=== PATIENT | female | born 1985 | race Hispanic/Latino ===

== ENCOUNTER 2021-10-19 15:43 | Emergency (ER) | payer OTHER, SELFPAY ==
--- NOTE | 2021-10-19 15:47 | ED.FEMALEGU ---
HPI - Female Genitourinary General Chief complaint: Urogenital-Female Stated complaint: uti Time Seen by Provider: 10/19/21 16:12 Source: patient and RN notes reviewed Mode of arrival: ambulatory Limitations: no limitations History of Present Illness HPI Narrative: 36-year-old female presents with concern for urinary tract infection. She reports dysuria, frequency, urgency, feeling like not emptying her bladder, suprapubic pressure. She denies abdominal pain, vomiting, fever. She reports history of UTIs. MD elicited complaint: UTI Related Data Home Medications Medication Instructions Recorded Confirmed liothyronine mcg 10/19/21 lisinopril-hydrochlorothiazide tablet 10/19/21 metformin mg 10/19/21 phentermine mg 10/19/21 Allergies Allergy/AdvReac Type Severity Reaction Status Date / Time bee venom protein (honey bee) Allergy Other Verified 10/19/21 15:55 [bees] Review of Systems Review of Systems: CONSTITUTIONAL: Denies malaise, chills, sweats, or fever. CARDIOVASCULAR: Denies chest pain, palpitations, or edema. RESPIRATORY: Denies cough or dyspnea. GASTROINTESTINAL: Denies abdominal pain, nausea, vomiting, diarrhea GENITOURINARY: Reports dysuria, frequency, urgency, suprapubic pressure. Denies flank pain or hematuria. SKIN: Denies rash or itching. MUSCULOSKELETAL: Denies back pain or myalgia. All systems reviewed & are unremarkable except as noted in HPI and below PMFSH Comments At time of signature, agree with nursing past medical, surgical, social and family history. There is no relevant family history pertinent to the presenting complaint Exam Narrative: GENERAL: Well-appearing, well-nourished, and in no acute distress. HEAD: Normocephalic. EYES: PERRLA, conjunctivae clear. NECK: Supple. No lymphadenopathy CHEST: Clear to auscultation. No respiratory distress. HEART: Regular rate and rhythm. ABDOMEN: Soft, nontender upon palpation, nondistended, normal active bowel sounds, no palpable or pulsatile masses, no guarding. No CVA tenderness SKIN: Warm, dry, no rash. NEURO: Alert and oriented x3. PSYCH: Normal mood and affect Course Course Emergency Course: Patient is aware of diagnosis, understands and agrees to treatment plan. Anticipatory guidance given. Patient agrees to follow-up as directed and is aware of reasons to seek care at the emergency department. Portions of this record may have been created with voice recognition software Level of Care: Express Care Visit Vital Signs Vital signs: Reviewed. MDM - Female Genitourinary MDM Narrative Medical decision making narrative: Exam findings and UA show no acute concerns or changes; patient is non-toxic appearing and is in no distress. Patient is appropriate for outpatient treatment and follow-up. Differential Diagnosis Differential diagnosis: Likely urinary tract infection and cystitis Critical Care Time Critical Care Time Critical Care Time: No Discharge Plan Discharge Clinical Impression: Symptoms of urinary tract infection Patient Disposition: Home, Self-Care Condition: Stable Instructions: Antibiotic Form, Urinary Tract Infection in Women (ED) Additional Instructions: We will send a urine culture to the lab; if the culture identifies an organism that the prescribed antibiotic will not treat, you will receive a phone call from an urgent care staff member and an appropriate antibiotic will be prescribed. -Your symptoms should begin to improve within a day of starting antibiotics. But you should finish all the antibiotic pills you get. Otherwise your infection might come back. -Also recommend: increase water intake. Tylenol/ibuprofen as needed for pain or fever -Follow-up with your primary care provider for urine recheck or seek ER visit if condition worsens with high fever, nausea, vomiting and severe back pain. Prescriptions: New nitrofurantoin monohyd/m-cryst [Macrobid] 100 mg capsule 100 mg PO Q12H 5 Days Q
[2021-10-19 15:57] VITALS: BP 158/63; PULSE 85; RESP 20; TEMP 37.2; O2SAT 100
== END 2021-10-19 16:26 | disposition home or self-care (01) ==
PROVIDERS: Emergency Provider Nurse Practitioner
DX: R30.0 Dysuria (principal); R35.0 Frequency of micturition; R39.15 Urgency of urination
CPT/HCPCS: 81003; 87086; 99213; G0463

== ENCOUNTER 2022-02-13 15:40 | Emergency (ER) | payer OTHER, SELFPAY ==
[2022-02-13 15:47] VITALS: BP 133/91; PULSE 97; RESP 16; TEMP 36.6; O2SAT 100
[2022-02-13 15:53] VITALS: BP 133/91; PULSE 97; RESP 16; TEMP 36.6; O2SAT 100
--- NOTE | 2022-02-13 16:09 | ED.ABDPAIN ---
HPI - Abdominal Pain General Chief Complaint: Abdominal Pain Stated Complaint: abd pain Time Seen by Provider: 02/13/22 16:09 Source: patient and RN notes reviewed Mode of arrival: ambulatory Limitations: no limitations History of Present Illness HPI narrative: 36-year-old female presented for complaints of frequent belching, bloating, and loose stool for at least 1 week. Endorses associated nausea and fatigue. She states she has abdominal cramping on both sides of abdomen, worse in the morning and at night, feels better when she is eating. Denies vomiting, urinary complaints, hematochezia, fevers or chills. States she was prescribed Cipro for 2 weeks for urinary symptoms, she states she stopped that medication after 1 week when the symptoms started. She had been taking diet pills (metformin, phentermine, and thyroid med) intermittently since 06/2021, prescribed by weight loss management physician, which she stopped at the onset of symptoms. Endorses a history of IBS but has not been taking any medication for it for years. States she drinks a lot of water and has been eating healthy. Related Data Allergies Allergy/AdvReac Type Severity Reaction Status Date / Time bee venom protein (honey bee) Allergy Other Verified 02/13/22 15:49 [bees] Review of Systems Review of Systems: CONSTITUTIONAL: Denies body aches, fever, chills CARDIOVASCULAR: Denies chest pain, palpitations, or edema. RESPIRATORY: Denies cough or dyspnea. GASTROINTESTINAL: Endorses abdominal pain, nausea, vomiting, diarrhea. Denies hematochezia, melena, hematemesis GENITOURINARY: Denies dysuria, hematuria, or CVA tenderness. NEUROLOGIC: Denies headache, numbness, tingling, or weakness. All systems reviewed & are unremarkable except as noted in HPI and below PMFSH Comments At time of signature, I have reviewed and agree with nursing past medical, surgical, social and family history unless otherwise noted. Please see nursing chart for further information. There is no relevant family history pertinent to the presenting complaint Exam Narrative: GENERAL: Well-appearing ENT: mucous membranes moist CHEST: No respiratory distress. Clear to auscultation. HEART: Regular rate and rhythm. No murmur appreciated. Normal peripheral pulses. ABDOMEN: Nontender abdomen No guarding, rebound tenderness, or asymmetry; abd soft, large, nondistended, normal active bowel sounds. No CVA tenderness SKIN: Warm, dry, no rash. Capillary refill normal. Normal skin turgor. NEURO: No focal deficits. Alert and oriented x3. Gait steady. PSYCH:anxious Course Course Emergency Course: Patient is aware of diagnosis, understands and agrees to treatment plan. Anticipatory guidance given. Patient agrees to follow-up as directed and is aware of reasons to seek care at the emergency department. Portions of this record may have been created with voice recognition software Level of Care: Express Care Visit Vital Signs Vital signs: Vital Signs Temperature 97.9 F 02/13/22 15:47 Pulse Rate 97 02/13/22 15:47 Respiratory Rate 16 02/13/22 15:47 Blood Pressure 133/91 H 02/13/22 15:47 Pulse Oximetry 100 02/13/22 15:47 Oxygen Delivery Room Air 02/13/22 15:47 Temperature 97.9 F 02/13/22 15:53 Pulse Rate 97 02/13/22 15:53 Respiratory Rate 16 02/13/22 15:53 Blood Pressure 133/91 H 02/13/22 15:53 Pulse Oximetry 100 02/13/22 15:53 Oxygen Delivery Room Air 02/13/22 15:53 MDM - Abdominal Pain MDM Narrative Medical decision making narrative: urine with trace leuk, denies urinary symptoms. Advised supportive treatments for GI symptoms along with close f/u with the weight loss management physician since she stopped the medications abruptly. Also advised establish with PCP and GI for further evaluation and recommendations. She is in stable condition and appropriate for outpt treatment and f/u. Lab Data Labs: Urine Glucose Negative
== END 2022-02-13 16:45 | disposition home or self-care (01) ==
PROVIDERS: Emergency Provider Nurse Practitioner Family
DX: R14.2 Eructation (principal); K59.9 Functional intestinal disorder, unspecified
CPT/HCPCS: 81003; 99213; G0463

== ENCOUNTER 2022-02-18 11:29 | Emergency (ER) | payer OTHER, SELFPAY ==
[2022-02-18 11:39] VITALS: BP 127/79; PULSE 83; RESP 20; TEMP 36.9; O2SAT 100
--- NOTE | 2022-02-18 11:59 | ED.URI ---
HPI - URI/Sore Throat General Chief Complaint: Upper Respiratory Infection Stated Complaint: Sinus Time Seen by Provider: 02/18/22 12:00 Source: patient and RN notes reviewed Mode of arrival: ambulatory Limitations: no limitations History of Present Illness HPI Narrative: 36-year-old female presents to the [facility] with complaints of sinus congestion For the last 4 days states that she took Zyrtec for 2 days. States that she is feeling better. No other treatment prior to arrival. States she has an appointment with her primary care provider. Patient also states that she called off work and needs a work note for today. MD elicited complaint: nasal congestion Onset (ago): day(s) (4) Related Data Allergies Allergy/AdvReac Type Severity Reaction Status Date / Time bee venom protein (honey bee) Allergy Other Verified 02/13/22 15:49 [bees] Review of Systems Review of Systems: All systems reviewed & are unremarkable except as noted in HPI and below Constitutional: Constitutional: Reports no additional constitutional complaints, Denies chills and Denies fever(s) Eyes: Eyes: Reports no additional eye complaints ENT: Reports as per HPI and Reports nasal congestion Cardiovascular: Cardiovascular: Reports no additional cardiovascular complaints Respiratory: Respiratory: Reports no additional respiratory complaints Gastrointestinal: Gastrointestinal: Reports no additional gastrointestinal complaints Musculoskeletal: Musculoskeletal: Reports no additional musculoskeletal complaints Integumentary/Breasts: Skin/Breast: Reports system reviewed and no additional complaints, except as docu Neurologic: Reports system reviewed and no additional complaints, except as documented Psychiatric: Psychiatric: Reports no additional psychiatric complaints Allergic/Immunologic: Allergic/Immunologic: Reports no additional allergic/immunologic complaints PMFSH Past Medical History Medical History (Updated 02/18/22 @ 17:45 by Jihan Paredes APRN) History of thyroid disorder Obesity Surgical History Surgical History (Updated 02/18/22 @ 12:14 by Jihan Paredes APRN) No history of previous surgery Social History Social History Gender identity (if verbalized by the patient): Female Comments At the time of my signature, I reviewed and agree with the nursing past medical, surgical, social, and family history. There is no relevant family history pertinent to the patient complaint. Exam Const: General: healthy appearing, no acute distress and alert Nutritional Appearance: well nourished and obese Orientation/consciousness: patient oriented x3 Limitations: no limitations HENMT: Head: normal to inspection Ears: external ears normal General nose exam: Normal external nose present Throat: posterior oropharynx normal, tonsils normal and uvula midline Eyes: General: appearance normal, both eyes and all related structures Pupils: Equal, round and reactive pupils present Neck: Neck: normal visual inspection, no lymphadenopathy and no meningeal signs Chest: Chest palpation & inspection: normal inspection of the chest Resp: Effort & Inspection: normal respiratory effort and no use of accessory muscles Auscultation: clear to auscultation bilaterally, no crackles, no rales, no rhonchi and no wheezes Cardio: Rate: regular rate Rhythm: regular rhythm Back/Spine/Pelvis: Cervical Spine: normal cervical lordosis Thoracic/Lumbar Spine: thoracic and lumbar spine normal to inspection Skin: General skin exam: normal color Rashes: no rashes Wounds: no wounds Neuro: General: patient oriented x3, moves all extremities, no meningeal signs and no focal motor deficits Cranial nerves: Yes Equal, round and reactive pupils present Speech: normal speech Gait exam (Neuro): Normal gait present Extrem: General: normal to inspection, full ROM and capillary refill normal Psych: Appearanc
== END 2022-02-18 12:20 | disposition home or self-care (01) ==
PROVIDERS: Emergency Provider Nurse Practitioner
DX: J06.9 Acute upper respiratory infection, unspecified (principal); E66.9 Obesity, unspecified; Z68.42 Body mass index [BMI] 45.0-49.9, adult
CPT/HCPCS: 99213; G0463

== ENCOUNTER 2022-04-08 01:21 | Day surgery (SDC) | payer OTHER, SELFPAY ==
[2022-04-02 12:08] VITALS: BMI 46.7
--- NOTE | 2022-04-07 11:29 | PM.HPGS ---
History of Present Illness History of Present Illness Consent: Risks, benefits, and alternatives have been discussed and questions answered. Patient agrees to proceed with procedure. Chief complaint: change in bowel habits, abdominal pain, belching Narrative: Oxana Quintanilla is a 36 year old female who reports over the last 6 months she began having intermittent pain around her umbilicus radiating down to her lower quadrant and at times radiating to her lower back and up into her shoulders.? Over the last 1 month this has been progressively been getting worse and says it is now constant. Having BM does not improve or change pain.? She does feel like it improves around 30 minutes after eating and is not typically worse after eating.? She describes this pain as ?menstrual cramping?.? She does report altered bowel habits and at times looser stools and at times feeling constipated but does not feel like she actually has hard stools.? She has mix of soft and looose stools but majority of the time typically 1-3 times per day.? Denies any black or bloody stools.? Has tenesmus.? Unknown family history of any GI malignancies or inflammatory bowel disease. Review of Systems Review of Systems: All systems reviewed & are unremarkable except as noted in HPI and below PMFSH Past Medical History Medical History Altered bowel habits Chronic GERD Diabetes History of thyroid disorder HTN (hypertension) Hypothyroidism Obesities, morbid Obesity Surgical History Surgical History H/O dilation and curettage No history of previous surgery [place] teeth removed Family History Family History Father AA (alcohol abuse) Mother Hypertension Social History Social History Smoking status: Never smoker Second hand tobacco smoke exposure: No Alcohol intake: never Substance use: never Substance use type: does not use Living arrangements: with family Gender identity (if verbalized by the patient): Female Spiritual care concerns: No Meds Home Medications and Allergies Home Medications Medication Instructions Recorded Confirmed Type cholecalciferol (vitamin D3) 10 10 mcg PO DAILY 03/26/22 04/08/22 History mcg (400 unit) capsule dicyclomine 10 mg capsule 10 mg PO QID #120 caps 03/26/22 04/08/22 Rx famotidine 40 mg tablet 40 mg PO DAILY #30 tabs 03/26/22 04/08/22 Rx levonorgestrel 20 mcg/24 hours (7 1 device intrauterine ONCE 03/26/22 04/08/22 History yrs) 52 mg intrauterine device (Mirena) liothyronine 25 mcg tablet 25 mcg PO DAILY 03/26/22 04/08/22 History metformin 500 mg tablet 500 mg PO DAILY 03/26/22 04/08/22 History vitamin B complex (B 1 tablet PO DAILY 03/26/22 04/08/22 History Complex-Vitamin B12 tablet) Allergies Allergy/AdvReac Type Severity Reaction Status Date / Time bee venom protein (honey bee) Allergy Other Verified 04/08/22 11:46 [bees] Exam Const: General: alert Orientation/consciousness: patient oriented x3 Resp: Auscultation: clear to auscultation bilaterally Cardio: Rhythm: regular rhythm GI: GI Palp: Yes Soft to palpation and No Tenderness to palpation present (GI) Neuro: General: patient oriented x3 Assessment and Plan Assessment and plan (1) Abdominal pain: Code(s): R10.9 - Unspecified abdominal pain Status: Acute Assessment and Plan: EGD with possible biopsy or dilatation or cautery. (2) Altered bowel habits: Code(s): R19.4 - Change in bowel habit Status: Acute Assessment and Plan: Colonoscopy with possible biopsy or polypectomy or cautery or injection of substances.
[2022-04-08 11:50] VITALS: BP 136/82; PULSE 71; RESP 18; TEMP 36.4; O2SAT 100
[2022-04-08] MEDS: LACTATED RINGERS 1,000 ML 150 ML IV CONT (11:52)
--- NOTE | 2022-04-08 12:12 | WPDANESEPPF ---
Anes - Initial Pre Proc Eval Procedure: Operation Date: 04/08/22 13:00 Proposed Procedures p Esophagogastroduodenoscopy & Colonoscopy - Artie Crum MD Date/Time: 04/08/22 12:12 Surgeon: Artie Crum MD Pre Op Diagnosis: change in bowel habits, abdominal pain, belching Patient Data Age: 36 Gender: F Height: 1.62 m Weight: 123 kg Last Vital Signs Temp 36.4 C L 04/08/22 11:50 Pulse 71 04/08/22 11:50 Resp 18 04/08/22 11:50 BP 136/82 04/08/22 11:50 Pulse Ox 100 04/08/22 11:50 O2 Del Method Room Air 04/08/22 11:50 Allergies Allergy/AdvReac Type Severity Reaction Status Date / Time bee venom protein (honey bee) Allergy Other Verified 04/08/22 11:46 [bees] Home Medications Medication Instructions Recorded Confirmed Type cholecalciferol (vitamin D3) 10 10 mcg PO DAILY 03/26/22 04/08/22 History mcg (400 unit) capsule dicyclomine 10 mg capsule 10 mg PO QID #120 caps 03/26/22 04/08/22 Rx famotidine 40 mg tablet 40 mg PO DAILY #30 tabs 03/26/22 04/08/22 Rx levonorgestrel 20 mcg/24 hours (7 1 device intrauterine ONCE 03/26/22 04/08/22 History yrs) 52 mg intrauterine device (Mirena) liothyronine 25 mcg tablet 25 mcg PO DAILY 03/26/22 04/08/22 History metformin 500 mg tablet 500 mg PO DAILY 03/26/22 04/08/22 History vitamin B complex (B 1 tablet PO DAILY 03/26/22 04/08/22 History Complex-Vitamin B12 tablet) Patient hx anesthesia problems: none Family hx anesthesia problems: none Results Review: All pre-operative results and documents have been reviewed as part of the pre-operative evaluation. [facility] Past Medical History Medical History (Updated 04/08/22 @ 12:14 by Ryan Evans MD) Altered bowel habits Chronic GERD Diabetes History of thyroid disorder HTN (hypertension) Hypothyroidism Obesities, morbid Obesity Surgical History Surgical History (Updated 03/26/22 @ 15:00 by Josefina Esquivel MA) H/O dilation and curettage No history of previous surgery [place] teeth removed Family History Family History (Updated 03/26/22 @ 14:59 by Josefina Esquivel MA) Father AA (alcohol abuse) Mother Hypertension Social History Social History (Updated 03/26/22 @ 14:59 by Josefina Esquivel MA) Smoking status: Never smoker Second hand tobacco smoke exposure: No Alcohol intake: never Substance use: never Substance use type: does not use Living arrangements: with family Gender identity (if verbalized by the patient): Female Spiritual care concerns: No Anes - Eval Final PreProcedure Day of Procedure 04/08/22 12:12 Patient weight: obese Heart: regular rate and rhythm Lungs: clear to auscultation and normal air movement Airway: Mallampati scale class II Neurological: alert and oriented Last oral intake: >/= 8 hours ASA classification: III Emergent: no Anesthetic plan: proceed Anesthesia type and monitoring: general GIVS Results Review: All pre-operative results and documents have been reviewed as part of the pre-operative evaluation. Informed Consent: The patient's anesthetic plan and its attendant risks and benefits were discussed with the patient/family/POA. Questions were solicited and answers provided to the satisfaction of the patient/family/POA.
--- NOTE | 2022-04-08 12:44 | SUR.OPER ---
EGD: [id number] COLON: [id number]
[2022-04-08 13:04] VITALS: BP 124/81; PULSE 79; RESP 21; O2SAT 100
[2022-04-08 13:14] VITALS: BP 136/94; PULSE 61; RESP 23; O2SAT 100
[2022-04-08 13:24] VITALS: BP 121/72; PULSE 57; RESP 21; O2SAT 100
== END 2022-04-08 13:30 | disposition home or self-care (01) ==
PROVIDERS: Visit Provider Internal Medicine Gastroenterology
PROC: 0DJ08ZZ Inspection of Upper Intestinal Tract, Via Natural or Artificial Opening Endoscopic (ICD-10-PCS; CPT 43235; principal; 2022-04-08 13:00)
DX: R19.4 Change in bowel habit (principal); K62.1 Rectal polyp; R14.2 Eructation; E03.9 Hypothyroidism, unspecified; K21.9 Gastro-esophageal reflux disease without esophagitis; I10 Essential (primary) hypertension; E66.9 Obesity, unspecified; Z68.42 Body mass index [BMI] 45.0-49.9, adult; E11.9 Type 2 diabetes mellitus without complications; R10.33 Periumbilical pain
CPT/HCPCS: 45380; 43239; 87081; 88305; J2704; J7120

== ENCOUNTER 2023-06-30 16:02 | Emergency (ER) | payer OTHER, SELFPAY ==
[2023-06-30 16:15] VITALS: BP 136/87; PULSE 87; RESP 20; TEMP 36.9; O2SAT 100
--- NOTE | 2023-06-30 16:50 | ED.FEMALEGU ---
HPI - Female Genitourinary General Chief complaint: Urogenital-Female Stated complaint: urinary issue Time Seen by Provider: 06/30/23 16:04 Source: patient Mode of arrival: ambulatory Limitations: no limitations History of Present Illness HPI Narrative: 37-year-old female presents to [facility] complaints of vaginal discomfort and vaginal burning for the past 4-5 days. Patient denies vaginal discharge, vaginal odor, urinary symptoms or concern for STDs. Patient denies new sexual partners. Patient reports history of bacterial vaginosis and yeast infections. patient has IUD MD elicited complaint: genital itching and other ( vaginal discomfort, vaginal burning) Onset (ago): day(s) Vaginal discharge: none Vaginal bleeding: none Exacerbating factors: none Relieving factors: none Associated symptoms: denies other symptoms Sexual activity: Yes Patient : No Related Data Home Medications Medication Instructions Recorded Confirmed cholecalciferol (vitamin D3) 10 10 mcg PO DAILY 03/26/22 04/08/22 mcg (400 unit) capsule levonorgestrel 21 mcg/24 hours (8 1 device intrauterine ONCE 03/26/22 04/08/22 yrs) 52 mg intrauterine device (Mirena) liothyronine 25 mcg tablet 25 mcg PO DAILY 03/26/22 04/08/22 metformin 500 mg tablet 500 mg PO DAILY 03/26/22 04/08/22 vitamin B complex (B 1 tablet PO DAILY 03/26/22 04/08/22 Complex-Vitamin B12 tablet) Allergies Allergy/AdvReac Type Severity Reaction Status Date / Time bee venom protein (honey bee) Allergy Other Verified 04/08/22 11:46 [bees] Review of Systems Constitutional: Constitutional: Denies chills and Denies fatigue ENT: Denies vertigo, Denies dizziness and Denies epistaxis Cardiovascular: Cardiovascular: Denies chest pain Respiratory: Respiratory: Denies cough, Denies dyspnea and Denies wheezing Gastrointestinal: Gastrointestinal: Denies diarrhea, Denies nausea and Denies vomiting Genitourinary: Genitourinary: Denies abnormal vaginal bleeding, Denies hematuria, Denies nocturia, Denies genital lesions, Denies dysuria, Denies flank pain, Denies urinary incontinence and Denies vaginal discharge Comments: vaginal burning, vaginal discomfort Musculoskeletal: Musculoskeletal: Denies back pain, Denies myalgias, Denies arthralgias and Denies joint swelling Integumentary/Breasts: Skin/Breast: Denies erythema and Denies rash Neurologic: Denies dizziness, Denies syncope and Denies headache(s) [facility] Past Medical History Medical History Altered bowel habits Chronic GERD Diabetes History of thyroid disorder HTN (hypertension) Hypothyroidism Obesities, morbid Obesity Surgical History Surgical History H/O dilation and curettage No history of previous surgery [place] teeth removed Family History Family History Father AA (alcohol abuse) Mother Hypertension Social History Social History Smoking status: Never smoker Second hand tobacco smoke exposure: No Alcohol intake: never Substance use: never Substance use type: does not use Living arrangements: with family Occupation/Education: occupation Gender identity (if verbalized by the patient): Female Spiritual care concerns: No Comments At time of signature, I agree with nursing past medical, surgical, social and family history. There is no relevant family history pertinent to the presenting complaint. Exam Const: General: healthy appearing and no acute distress Nutritional Appearance: well nourished Orientation/consciousness: patient oriented x3 Limitations: no limitations Eyes: Conjunctivae: conjunctivae normal Resp: Effort & Inspection: normal respiratory effort and not labored Auscultation: clear to auscultation bilaterally, no crackles, no
== END 2023-06-30 17:21 | disposition home or self-care (01) ==
PROVIDERS: Emergency Provider Nurse Practitioner Family; PCP Physician Assistant
DX: N76.0 Acute vaginitis (principal); K21.9 Gastro-esophageal reflux disease without esophagitis; E11.9 Type 2 diabetes mellitus without complications; Z79.84 Long term (current) use of oral hypoglycemic drugs; I10 Essential (primary) hypertension; E03.9 Hypothyroidism, unspecified; E66.01 Morbid (severe) obesity due to excess calories; Z68.43 Body mass index [BMI] 50.0-59.9, adult
CPT/HCPCS: 99213; G0463

== ENCOUNTER 2023-12-15 23:24 | Inpatient (IN) | payer OTHER, SELFPAY ==
--- NOTE | ~2023-12-15 | CT_ITS ---
CT of the Abdomen and Pelvis: Indication: Abdominal pain Technique: 2.5 mm axial scans were obtained through the abdomen and pelvis following intravenous adm inistration of 100 cc of Omnipaque 350. Dose reduction technique was used on this scan by utilizing a utomated exposure control and iterative reconstruction technique. The dose-length product (DLP) was 1 907.47 mGy-cm. Findings: Scans through the lung bases are unremarkable. The liver, spleen, pancreas, adrenals and kidneys are within normal limits. There is mild gallbladder wall thickening, nonspecific. No evidence of aortic aneurysm. No lymphadenopathy. No bowel obstruction or bowel wall thickening. There is no evidence to suggest acute appendicitis. Images through the pelvis were performed. IUD in place. No pelvic mass seen. Urinary bladder unremark able. No ascites. Impression: Mild gallbladder wall thickening, nonspecific. Correlate for any possibility of acute cholecystitis. Consider ultrasound to better assess for cholelithiasis, and/or HIDA scan, as indicated. IUD in place. Reviewed, dictated and finalized at location . Impression: Mild gallbladder wall thickening, nonspecific. Correlate for any possibility of acute cholecystitis. Consider ultrasound to better assess for cholelithiasis, and/or HIDA scan, as indicated. IUD in place.
--- NOTE | ~2023-12-15 | US_ITS ---
EXAMINATION: US right upper quadrant DATE: 12/16/2023 12:08 INDICATION: Acute cholecystitis. TECHNIQUE: Multiple grayscale and Doppler ultrasound images of the abdomen were obtained. COMPARISON: CT abdomen and pelvis 12/16/2023 FINDINGS: The visualized portions of the head and body of the pancreas are normal. The liver is franco l without focal lesion. There is normal flow in main portal vein. The gallbladder is normal in size a nd contains gallstones. Gallbladder wall thickening is noted. There was no sonographic Pham sign. T he common duct is normal and measures 3 mm. IMPRESSION: 1. Cholelithiasis. Gallbladder wall thickening may be seen with interstitial edema, chronic liver dis ease, or chronic cholecystitis. Reviewed, dictated and finalized at location A. IMPRESSION: 1. Cholelithiasis. Gallbladder wall thickening may be seen with interstitial ed anamika, chronic liver disease, or chronic cholecystitis.
[2023-12-15 23:31] VITALS: BP 150/88; PULSE 95; RESP 16; TEMP 37.1; O2SAT 100
[2023-12-15 23:50] LABS: Basophils Absolute Auto 0.1 K/mm3 (0.0-0.1); Basophils Percent Auto 0.6 % (0.2-1.2); Eosinophils Absolute Auto 0.7 K/mm3 (0-0.3); Hematocrit 41.4 % (37.0-47.0); Hemoglobin 13.4 g/dL (12.0-15.0); Immature Granulocyte Absolute 0.03 K/mm3 (0.00-0.031); Immature Granulocyte Percent A 0.3 % (0-0.5); Lymphocytes Absolute Auto 3.35 K/mm3 (0.9-3.2); Lymphocytes Percent Auto 33.5 % (18.3-44.2); Mean Corpuscular HGB Conc 32.4 g/dl (32-36); Mean Corpuscular Hemoglobin 29.9 pg (26-34); Mean Corpuscular Volume 92.4 fl (80-100); Mean Platelet Volume 9.3 fl (7.4-10.4); Monocytes Absolute Auto 0.7 K/mm3 (0.1-0.6); Monocytes Percent Auto 6.8 % (2.6-8.5); Neutrophils Absolute Auto 5.2 K/mm3 (1.3-6.7); Neutrophils Percent Auto 51.8 % (45.5-73.1); Platelet Count Result 344 k/mm3 (150-375); Red Blood Count 4.48 M/mm3 (4.2-5.4); Red Cell Distribution Width 12.5 % (11.5-14.5)
[2023-12-15 23:59] LABS: Appearance Urine Clear (Clear); Bacteria Urine 1+ /hpf; Bilirubin Urine Negative (Negative); Blood Urine Trace (Negative); Color Urine Yellow (Yellow); Glucose Urine UA Negative (Negative); Ketones Urine Negative (Negative); Leukocyte Esterase Ur Negative LEU/UL (Negative); Need Manual Microscopic Reviewed; Nitrate Urine Negative (Negative); Non Pathogenic Casts 0-2; Protein Urine Negative (Negative); RBC Urine 0-2 /hpf (0-2); Specific Grav Ur 1.027 (1.001-1.035); Squamous Epithelial Cell Urine Few /hpf (Few); pH Urine 5.5 (5.0-9.0)
[2023-12-16] LABS: Add Urine Microscopic? YES
[2023-12-16 00:02] LABS: Alanine Aminotransferase 25 U/L (6-35); Albumin Level 4.3 g/dL (3.5-5.1); Alkaline Phosphatase 47 U/L (38-126); Anion Gap 8 mmol/L (4-12); Aspartate Amino Transferase 27 U/L (14-36); Bilirubin,Total 0.8 mg/dL (0.2-1.3); Blood Urea Nitrogen 18 mg/dL (7-17); Calcium 9.2 mg/dL (8.4-10.2); Carbon Dioxide 25 mmol/L (22-30); Chloride 104 mmol/L (98-107); Estimated CRCL calculation 97 ml/min; Estimated Glomerular Filt Rate > 60; Glucose 114 mg/dL (65-110); Lipase 160 U/L (23-300); Sodium 137 mmol/L (137-145)
[2023-12-16] MEDS: ONDANSETRON INJ 4 MG/2 ML VIAL IV PUSH (01:54)
[2023-12-16] MEDS: SODIUM CHLORIDE 0.9% IV 1,000 ML 999 ML IV CONT (01:54)
[2023-12-16 02:20] LABS: Influenza A QL RT-PCR Negative (Negative); Influenza B QL RT-PCR Negative (Negative); RSV RNA, RT-PCR Negative (Negative); SARS-CoV-2 RNA PCR Negative (Negative)
--- NOTE | 2023-12-16 02:40 | ED.ABDPAIN ---
HPI - Abdominal Pain General Chief Complaint: Abdominal Pain Stated Complaint: N/V, back pain, abd pain Time Seen by Provider: 12/16/23 01:50 History of Present Illness HPI narrative: Patient is a 38-year-old female who presents the emergency department this evening complaining of mid epigastric and periumbilical abdominal pain which started around 10:00 p.m. Patient states the only time she had similar pain was when she was in labor having contractions. She describes the pain at 10/10 initially when it started sometime between 9-10 p.m. but states that now her pain is significant improved. She admits to having nausea and vomiting, denies any diarrhea, constipation, melena or hematochezia, fevers or chills, and she also denies any dysuria or hematuria. Patient admits to having bilateral flank pain as well and is unsure if that is associated with her symptoms. She denies any history of previous kidney stones. Patient denies any previous abdominal surgeries. There are no other modifying, alleviating, or precipitating factors at this time. Related Data Home Medications Medication Instructions Recorded Confirmed cholecalciferol (vitamin D3) 10 10 mcg PO DAILY 03/26/22 04/08/22 mcg (400 unit) capsule levonorgestrel 21 mcg/24 hours (8 1 device intrauterine ONCE 03/26/22 04/08/22 yrs) 52 mg intrauterine device (Mirena) liothyronine 25 mcg tablet 25 mcg PO DAILY 03/26/22 04/08/22 metformin 500 mg tablet 500 mg PO DAILY 03/26/22 04/08/22 vitamin B complex (B 1 tablet PO DAILY 03/26/22 04/08/22 Complex-Vitamin B12 tablet) Allergies Allergy/AdvReac Type Severity Reaction Status Date / Time bee venom protein (honey bee) Allergy Other Verified 04/08/22 11:46 [bees] Review of Systems Review of Systems: All systems are reviewed and are negative unless stated otherwise in the HPI. [facility] Past Medical History Medical History Altered bowel habits Chronic GERD Diabetes History of thyroid disorder HTN (hypertension) Hypothyroidism Obesities, morbid Obesity Surgical History Surgical History H/O dilation and curettage No history of previous surgery [place] teeth removed Family History Family History Father AA (alcohol abuse) Mother Hypertension Social History Social History Smoking status: Never smoker Second hand tobacco smoke exposure: No Alcohol intake: never Substance use: never Substance use type: does not use Living arrangements: with family Occupation/Education: occupation Gender identity (if verbalized by the patient): Female Spiritual care concerns: No Exam Narrative: General: Alert, awake, afebrile, in no acute distress, obese. HEENT: PERRL, no rhinorrhea, no post nasal drip, oropharynx clear. Neck: Trachea midline, no JVD, no lymphadenopathy. Cardiovascular: Regular rate and rhythm, no murmurs, rubs or gallops, no peripheral edema. Respiratory: Clear to auscultation bilaterally, no tachypnea, no wheezing, no rhonchi, no rubs, no respiratory distress. Abdomen: Soft, non-reproducible tenderness to palpation over the right upper quadrant, nondistended, no rebound, no guarding, no peritoneal signs. Musculoskeletal: No joint swelling or deformity, normal muscle tone. Skin: No rashes or petechia, no signs of infection. Psychiatric: Alert and oriented, normal behavior and judgment for situation. Neurological: Alert and oriented to person, place, and time. Follows all commands. No focal deficits, speech is clear and fluent. Course Vital Signs Vital signs: Vital Signs Temperature 98.7 F 12/15/23 23:31 Pulse Rate 95 12/15/23 23:31 Respiratory Rate 16 12/15/23 23:31 Blood Pressure 150/88 H 12/15/23 23:31 Pulse Oximetry 100 12/15/23 23:31
[2023-12-16 04:46] VITALS: BP 123/71; PULSE 92; RESP 13; O2SAT 96
[2023-12-16 06:29] VITALS: BP 123/71; PULSE 78; RESP 20; O2SAT 98
--- NOTE | 2023-12-16 06:48 | ADMGEN ---
This patient, Oxana Quintanilla, was admitted to Medical Room 345-. Patient/family oriented to hospital policies and general routines including ID bracelet, bed and alarms, visiting hours, pain management, procedures, bathroom and other care routines, personal items, smoking policy, room service/diet, and visiting hours. Information on how to activate the Rapid Response Team has been discussed. Patient/Family are encouraged to report perceived risks to care and to ask questions if they do not understand what they are told or what they should do.
[2023-12-16] MEDS: SODIUM CHLORIDE 0.9% IV 1,000 ML 125 ML IV CONT ×2 (06:52→22:45)
[2023-12-16 06:59] VITALS: BMI 53.4
[2023-12-16 07:04] VITALS: BP 142/76; PULSE 72; RESP 18; TEMP 36.3; O2SAT 97
--- NOTE | 2023-12-16 08:08 | PM.IMHP ---
H&P: HPI History of Present Illness Date/Time: 12/16/23 08:08 Chief Complaint: Abdominal pain Narrative: 38yo female wit HTN and DM here for abdominal pain. Patient has been having intermittent abdominal pain in the past but unable to provide history. Patient developed mid back pain and saw her doctor on 12/09 and had UA that was negative. She was also complaining of feeling like unable to breath when eating a referal was made. She was doing well when she developed acute epigastric pain about 2-3 hours after eating nachos, cheese and meat. Developed nausea and vomiting x3 with last emesis a 'burnt red' color. No fevers but thinks she had chills. No diarrhea. Last BM on day of admission was 'really dark' but denies melena and hematochezia. she also had headaches and heartburn symptoms. No recent falls or trauma. She states she has had chest tightness for the past week and notices it when she is laying around too much . It is slightly pleuritic in nature and does not come on with activity. no associated symptoms such as nausea, diaphoresis or shortness of breath. no dysuria hematuria. She states that there was a small amount of blood noted in the UA drawn her doctor's office recently. She snores but no daytime somnolence, apneic complaints from her bed partner or snorting herself awake. Because of the severe abdominal pain, she presented to the ED for evaluation In the ED, she was hemodynamically stable. CBC normal except for mild eosinophilia (700 cells). CMP essentially normal. Lipase normal. UA showing 11-20 WBC and 1+ bacteria. Influenza, RSV and COVID PCR negative. Lipase normal. CT Abd/Pelvis showing mild GB wall thickening. She was given Zofran, IVF and Rocephin. She was admitted for further care. Her pain improved in the ED without needing narcotics. Review of Systems Review of Systems: All systems reviewed & are unremarkable except as noted in HPI and below PMFSH Past Medical History Medical History (Updated 12/16/23 @ 10:18 by Deon Sanchez MD) Altered bowel habits Chronic GERD Depression Diabetes Patient denies History of thyroid disorder HTN (hypertension) Patient denies Hypothyroidism Patient denies Obesities, morbid Obesity Surgical History Surgical History H/O dilation and curettage No history of previous surgery [place] teeth removed Family History Family History Father AA (alcohol abuse) Mother Hypertension Social History Social History Smoking status: Never smoker Second hand tobacco smoke exposure: No Alcohol intake: current Substance use: never Substance use type: does not use Do You Feel Safe in your Home?: Yes Lack of Transportation: No Lack of Food: Never True Current Housing: I Have Housing Concerned About Future Housing: No Difficulty Paying Gas/Electric Bills: No Difficulty Paying for Meds: No Currently Unemployed: No Education: High School Diploma/GED Difficulty w/ Childcare or Family Care: No Living arrangements: with family Occupation/Education: occupation Gender identity (if verbalized by the patient): Female Spiritual care concerns: No Meds Home Medications and Allergies Home Medications Medication Instructions Recorded Confirmed Type bupropion HCl 300 mg 24 hr tablet, 300 mg PO DAILY 12/16/23 12/16/23 History extended release Allergies Allergy/AdvReac Type Severity Reaction Status Date / Time bee venom protein (honey bee) Allergy Other Verified 04/08/22 11:46 [bees] Vital Signs Vital Signs - 24 hr 12/15/23 23:31 12/16/23 06:29 12/16/23 04:46 Temperature 98.7 F Pulse Rate 95 78 92 Respiratory Rate 16 20 13 Blood Pressure 150/88 H 123/71 123/71 Pulse Oximetry 100 98 96 Oxygen Delivery Room Air 12/16/23 07:04 Temperature 9
[2023-12-16] MEDS: buPROPion HCL XL (24 HR) 150 MG TABCR 300 MG PO (09:19)
[2023-12-16] MEDS: PANTOPRAZOLE SODIUM IV 40 MG VIAL IV PUSH ×2 (12:29→20:54)
[2023-12-16 12:31] LABS: Glucose Point of Care 97 mg/dl (65-105)
--- NOTE | 2023-12-16 12:51 | PM.CNGS ---
Assessment and Plan Assessment and plan (1) Acute cholecystitis: Code(s): K81.0 - Acute cholecystitis Status: Acute Assessment and Plan: CT reviewed and showed nonspecific mild gallbladder wall thickening, no CT evidence of cholelithiasis or other findings to suggest acute cholecystitis. WBC count and LFTs normal. Her abdominal pain has improved this morning. She does have tenderness in the RUQ and epigastric area. Could be gallbladder related or another GI source. RUQ abdominal ultrasound ordered and will await these results. Agree with GI consultation given possible bloody emesis. If the ultrasound shows gallstones and suggests acute cholecystitis, then we could consider discussing the option of a cholecystectomy versus nonoperative management with dietary modifications. Will continue to follow along. (2) Nausea & vomiting: Code(s): R11.2 - Nausea with vomiting, unspecified Status: Acute Assessment and Plan: Patient reports rust-colored emesis and dark stools. Hgb normal. GI consulted and could consider endoscopic evaluation for other possible causes of her epigastric pain. (3) Chronic GERD: Code(s): K21.9 - Gastro-esophageal reflux disease without esophagitis Status: Acute (4) Obesities, morbid: Code(s): E66.01 - Morbid (severe) obesity due to excess calories Status: Acute Plan I have discussed the patient's case and plan of care with Dr. Regalado. History of Present Illness Consult details Consult date: 12/16/23 Reason for consult: other (Possible acute cholecystitis) Requesting physician: Telly Granados MD Narrative: This is a 38-year-old morbidly obese woman who presented to the ER yesterday for epigastric abdominal pain and vomiting. She reports a sudden onset of epigastric pain about 2 hours after eating nachos for dinner. She developed nausea and multiple episodes of vomiting. She did notice that she had rest colored emesis and has recently noticed really dark stools. She denies ever having this abdominal pain in the past, but does report increased frequency of indigestion and heartburn. She also has been dealing with mid upper back pain that comes and goes for about the last year. She feels this pain has become more frequent. In the ER, labs were unremarkable with a normal white blood cell count and normal LFTs. CT scan of the abdomen and pelvis showed mild gallbladder wall thickening and an IUD in place. No CT evidence of cholelithiasis. She was admitted to the hospitalist service. She received 1 dose of IV ceftriaxone in the ER. GI has also been consulted. She is currently NPO. Right upper quadrant abdominal ultrasound ordered today. Her abdominal pain has improved, but she still has persistent back pain. She has not taken any more in morphine since being on the medical floor. No more nausea or vomiting this morning. No other complaints at this time. Denies previous abdominal surgeries. Review of Systems Review of Systems: All systems reviewed & are unremarkable except as noted in HPI and below PMFSH Past Medical History Medical History Altered bowel habits Chronic GERD Depression History of thyroid disorder Obesities, morbid Surgical History Surgical History H/O dilation and curettage [place] teeth removed Family History Family History Father AA (alcohol abuse) Mother Hypertension Social History Social History Smoking status: Never smoker Second hand tobacco smoke exposure: No Alcohol intake: current Substance use: never Substance use type: does not use Do You Feel Safe in your Home?: Yes Lack of Transportation: No Lack of Food: Never True Current Housing: I Have Housing Concerned About Future Housin
[2023-12-16 14:00] VITALS: BP 139/73; PULSE 71; RESP 18; TEMP 36.6; O2SAT 97
[2023-12-16 14:45] LABS: Basophils Absolute Auto 0.1 K/mm3 (0.0-0.1); Basophils Percent Auto 0.7 % (0.2-1.2); Eosinophils Absolute Auto 0.5 K/mm3 (0-0.3); Eosinophils Percent Auto 7.7 % (0-4.4); Hematocrit 36.7 % (37.0-47.0); Hemoglobin 11.8 g/dL (12.0-15.0); Immature Granulocyte Absolute 0.01 K/mm3 (0.00-0.031); Immature Granulocyte Percent A 0.1 % (0-0.5); Lymphocytes Absolute Auto 2.51 K/mm3 (0.9-3.2); Lymphocytes Percent Auto 36.4 % (18.3-44.2); Mean Corpuscular HGB Conc 32.2 g/dl (32-36); Mean Corpuscular Hemoglobin 30.2 pg (26-34); Mean Corpuscular Volume 93.9 fl (80-100); Mean Platelet Volume 9.3 fl (7.4-10.4); Monocytes Absolute Auto 0.5 K/mm3 (0.1-0.6); Monocytes Percent Auto 7.1 % (2.6-8.5); Neutrophils Absolute Auto 3.3 K/mm3 (1.3-6.7); Platelet Count Result 274 k/mm3 (150-375); Red Blood Count 3.91 M/mm3 (4.2-5.4); Red Cell Distribution Width 12.5 % (11.5-14.5); White Blood Count 6.9 K/mm3 (4.5-10.0)
[2023-12-16 15:00] LABS: Alanine Aminotransferase 24 U/L (6-35); Albumin Level 3.7 g/dL (3.5-5.1); Alkaline Phosphatase 41 U/L (38-126); Anion Gap 3 mmol/L (4-12); Aspartate Amino Transferase 28 U/L (14-36); Bilirubin,Total 1.3 mg/dL (0.2-1.3); Blood Urea Nitrogen 9 mg/dL (7-17); Calcium 8.4 mg/dL (8.4-10.2); Carbon Dioxide 28 mmol/L (22-30); Chloride 105 mmol/L (98-107); Estimated CRCL calculation 144 ml/min; Estimated Glomerular Filt Rate > 60; Glucose 95 mg/dL (65-110); Lipase 79 U/L (23-300); Potassium 3.6 mmol/L (3.4-5.0); Sodium 136 mmol/L (137-145)
--- NOTE | 2023-12-16 15:10 | WPDGICN ---
Assessment and Plan Assessment and plan (1) Hematemesis: Code(s): K92.0 - Hematemesis Status: Acute Assessment and Plan: probably just from dry heaving will assess with egd tomorrow iv protonix (2) Acute cholecystitis: Code(s): K81.0 - Acute cholecystitis Status: Acute Assessment and Plan: surgery on board ultrasound reviewed normal liver enzymes (3) Abdominal pain: Code(s): R10.9 - Unspecified abdominal pain Status: Acute (4) Nausea & vomiting: Code(s): R11.2 - Nausea with vomiting, unspecified Status: Acute (5) HTN (hypertension): Code(s): I10 - Essential (primary) hypertension Status: Acute (6) Chronic GERD: Code(s): K21.9 - Gastro-esophageal reflux disease without esophagitis Status: Acute GI Consult Note Consult date/time: 12/16/23 15:10 Reason for consult: epigastric pain, cholelithiasis. hematemesis HPI: Oxana Quintanilla is a 38 year old female who presented to the ER yesterday for epigastric abdominal pain and vomiting which started 2 hours after eating nachos for dinner then had nausea and multiple episodes of vomiting.? She had EGD 2021 with non erosive esophagitis. She also has been dealing with mid upper back pain that comes and goes for about the last year.?She had normal white blood cell count and normal LFTs.? CT scan of the abdomen and pelvis showed mild gallbladder wall thickening and an IUD in place.? No CT evidence of cholelithiasis but ultrasound showed cholelithiasis with possible cholecystitis. Review of Systems Constitutional: Constitutional: Denies chills Eyes: Eyes: Denies blurry vision ENT: Reports Normal hearing present, Denies headache(s) and Denies neck pain Cardiovascular: Cardiovascular: Denies chest pain and Denies dyspnea Respiratory: Respiratory: Denies dyspnea Gastrointestinal: Gastrointestinal: Reports abdominal pain and Reports nausea Genitourinary: Genitourinary: Denies dysuria Musculoskeletal: Musculoskeletal: Denies neck pain Integumentary/Breasts: Skin/Breast: Denies dry skin Neurologic: Reports Normal hearing present, Denies headache(s) and Denies weakness Psychiatric: Psychiatric: Denies anxiety Endocrine: Endocrine: Denies change in body appearance Hematologic/Lymphatic: Hematologic/Lymphatic: Denies easy bleeding Allergic/Immunologic: Allergic/Immunologic: Denies urticaria PMFSH Past Medical History Medical History (Updated 12/16/23 @ 15:14 by Jabier Escoto MD) Altered bowel habits Chronic GERD Depression Hematemesis History of thyroid disorder Obesities, morbid Surgical History Surgical History H/O dilation and curettage [place] teeth removed Family History Family History Father AA (alcohol abuse) Mother Hypertension Social History Social History Smoking status: Never smoker Second hand tobacco smoke exposure: No Alcohol intake: current Substance use: never Substance use type: does not use Do You Feel Safe in your Home?: Yes Lack of Transportation: No Lack of Food: Never True Current Housing: I Have Housing Concerned About Future Housing: No Difficulty Paying Gas/Electric Bills: No Difficulty Paying for Meds: No Currently Unemployed: No Education: High School Diploma/GED Difficulty w/ Childcare or Family Care: No Living arrangements: with family Occupation/Education: occupation Gender identity (if verbalized by the patient): Female Spiritual care concerns: No Meds Home Medications and Allergies Home Medications Medication Instructions Recorded Confirmed Type bupropion HCl 300 mg 24 hr tablet, 300 mg PO DAILY 12/16/23 12/16/23 History extended release Allergies Allergy/AdvReac Type Severity Reaction
[2023-12-16 17:02] LABS: Glucose Point of Care 88 mg/dl (65-105)
[2023-12-16 18:31] LABS: Hemoglobin A1C 5.2 % (<5.7)
[2023-12-16 20:47] VITALS: BP 142/90; PULSE 70; RESP 16; TEMP 36.9; O2SAT 99
[2023-12-17] VITALS (16 sets, daily range): BP systolic 104–151; BP diastolic 55–97; PULSE 64–90; RESP 14–20; TEMP 36.3–36.8; O2SAT 95–100
[2023-12-17 00:08] LABS: Glucose Point of Care 95 mg/dl (65-105)
[2023-12-17 05:46] LABS: Glucose Point of Care 107 mg/dl (65-105)
--- NOTE | 2023-12-17 08:55 | PC.NURSE ---
Patient to GI lab per wheelchair. Consent signed
[2023-12-17] MEDS: LACTATED RINGERS 1,000 ML 150 ML IV CONT (09:07)
--- NOTE | 2023-12-17 10:06 | PC.NURSE ---
Patient returned from GI lab.
[2023-12-17] MEDS: PANTOPRAZOLE SODIUM IV 40 MG VIAL IV PUSH ×2 (10:26→20:45)
[2023-12-17] MEDS: SODIUM CHLORIDE 0.9% IV 1,000 ML 125 ML IV CONT (10:34)
--- NOTE | 2023-12-17 10:48 | PCDIET ---
Physician consult for morbid obesity. Please see Nutritional Teaching intervention. Thank you for the consult.
[2023-12-17 11:32] LABS: Basophils Percent Auto 0.6 % (0.2-1.2); Eosinophils Absolute Auto 0.4 K/mm3 (0-0.3); Hematocrit 38.7 % (37.0-47.0); Hemoglobin 12.6 g/dL (12.0-15.0); Immature Granulocyte Absolute 0.01 K/mm3 (0.00-0.031); Immature Granulocyte Percent A 0.1 % (0-0.5); Lymphocytes Absolute Auto 1.88 K/mm3 (0.9-3.2); Lymphocytes Percent Auto 27.6 % (18.3-44.2); Mean Corpuscular HGB Conc 32.6 g/dl (32-36); Mean Corpuscular Hemoglobin 30.3 pg (26-34); Mean Platelet Volume 9.3 fl (7.4-10.4); Monocytes Absolute Auto 0.4 K/mm3 (0.1-0.6); Neutrophils Absolute Auto 4.1 K/mm3 (1.3-6.7); Neutrophils Percent Auto 59.7 % (45.5-73.1); Platelet Count Result 298 k/mm3 (150-375); Red Blood Count 4.16 M/mm3 (4.2-5.4); Red Cell Distribution Width 12.2 % (11.5-14.5); White Blood Count 6.8 K/mm3 (4.5-10.0)
[2023-12-17 11:47] LABS: Alanine Aminotransferase 24 U/L (6-35); Albumin Level 3.9 g/dL (3.5-5.1); Alkaline Phosphatase 44 U/L (38-126); Anion Gap 4 mmol/L (4-12); Aspartate Amino Transferase 29 U/L (14-36); Bilirubin,Total 1.2 mg/dL (0.2-1.3); Blood Urea Nitrogen 5 mg/dL (7-17); Calcium 8.6 mg/dL (8.4-10.2); Carbon Dioxide 28 mmol/L (22-30); Chloride 105 mmol/L (98-107); Estimated CRCL calculation 125 ml/min; Estimated Glomerular Filt Rate > 60; Glucose 96 mg/dL (65-110); Potassium 3.8 mmol/L (3.4-5.0); Sodium 137 mmol/L (137-145)
--- NOTE | 2023-12-17 13:24 | PC.NURSE ---
Patient to OR per bed.
--- NOTE | 2023-12-17 13:43 | PM.IMPN ---
Progress Note: A&P Assessment and Plan (1) Acute cholecystitis: Code(s): K81.0 - Acute cholecystitis Status: Acute Assessment and Plan: Patient with acute onset abdominal pain 2-3 hours after eating. LFTs and lipase normal. Pain resolved in ED with use of narcotics or orther analgesics. CT scan showing mild GB wall thickening but o/w no acute findings. No significant pain at this time. pt proceeding to lap terra today ultrasound shows - ?Cholelithiasis. Gallbladder wall thickening may be seen with interstitial edema, chronic liver disease, or chronic cholecystitis. (2) Nausea & vomiting: Code(s): R11.2 - Nausea with vomiting, unspecified Status: Acute Assessment and Plan: Related to abdominal pain. Possibly realted to acute cholecystitis but consider gastroenteritis or PUD. Symptoms better. Add PPI (3) Hypothyroidism: Code(s): E03.9 - Hypothyroidism, unspecified Status: Acute Assessment and Plan: She states she was on thyroid medication for weight loss and does not have hypothyroidism TSH is nl (4) Diabetes: Code(s): E11.9 - Type 2 diabetes mellitus without complications Status: Acute Assessment and Plan: She states she was on metformin for weight loss and does not have DM. hbaic is 5 Pt does not have DM (5) HTN (hypertension): Code(s): I10 - Essential (primary) hypertension Status: Acute Assessment and Plan: She also denies having HTN although listed on her PMH as well. Follow BP and treat approrpriately. (6) Chronic GERD: Code(s): K21.9 - Gastro-esophageal reflux disease without esophagitis Status: Acute Assessment and Plan: has a hx of GERD but not on gastric suppression. As above (7) Obesities, morbid: Code(s): E66.01 - Morbid (severe) obesity due to excess calories Status: Acute Assessment and Plan: BMI 53. Healthy lifestyle choices encouraged. Dietary consult (8) Depression: Code(s): F32.A - Depression, unspecified Status: Acute Assessment and Plan: Mood stable. Continue bupropion Subjective Date/time seen: 12/17/23 13:43 Interval history: Pt admitted for cholecystitis pt proceeding to have lap terra today Review of Systems Review of Systems: nausea vomiting RUQ pains Exam Narrative: Gen - overweight younger female some distress y. Neck - neck was supple and thick. No obvious dominant adenopathy, thyromegaly or masses. Chest - lungs are clear to auscultation bilaterally. No wheezes or crackles. Breast exam was deferred. CV - heart was regular rate and rhythm. S1-S2. No murmurs gallops or rubs. Abd - abdomen was soft. Nontender. Nondistended. Positive bowel sounds. No organomegaly or masses. Ext - no clubbing, cyanosis or edema. 2+ DP pulses bilaterally. Neuro - patient is alert and oriented x4. Strength is 5/5 in both upper and lower extremities. Cranial nerves 2-12 are intact. Speech is clear. Psych - normal mood and affect. Patient is pleasant and cooperative. Skin - warm and dry. No rashes noted. Objective Data Vital Signs Vital Signs: Vital Signs - 24 hr 12/16/23 14:00 12/16/23 20:47 12/16/23 20:48 Temperature 36.6 C 36.9 C Pulse Rate 71 70 Respiratory Rate 18 16 Blood Pressure 139/73 142/90 H Pulse Oximetry 97 99 Oxygen Delivery Room Air 12/17/23 05:35 12/17/23 07:45 12/17/23 08:58 Temperature 36.6 C 36.3 C L Pulse Rate 67 75 Respiratory Rate 14 16 Blood Pressure 144/80 H 151/86 H Pulse Oximetry 96 96 97 Oxygen Delivery Room Air Room Air 12/17/23 09:46 12/17/23 09:56 12/17/23 10:06 Temperature Pulse Rate 90 80 79 Respiratory Rate 18 19 19 Blood Pressure 146/88 H 142/94 H 137/97 H Pulse Oximetry 98 96 96 Oxygen Delivery Room Air Room Air Room Air 12/17/23 08:00 Temperature Pulse Rate Respiratory Rate Blood Pressure
--- NOTE | 2023-12-17 14:26 | WPDANESEPPF ---
Anes - Initial Pre Proc Eval Procedure: Operation Date: 12/17/23 14:30 Proposed Procedures p Laparoscopic Cholecystectomy possible Open Cholecystectomy - Cain Regalado DO Operation Date: 12/17/23 15:30 Proposed Procedures p Esophagogastroduodenoscopy - Jabier Escoto MD Date/Time: 12/17/23 14:26 Surgeon: Tamika Mak DO Pre Op Diagnosis: Acute Cholecystitis Patient Data Age: 38 Gender: F Height: 1.6 m Weight: 136.7 kg Last Vital Signs Temp 98.3 F 12/17/23 13:54 Pulse 76 12/17/23 13:54 Resp 18 12/17/23 13:54 BP 137/73 12/17/23 13:54 Pulse Ox 100 12/17/23 13:54 O2 Del Method Room Air 12/17/23 13:54 Allergies Allergy/AdvReac Type Severity Reaction Status Date / Time bee venom protein (honey bee) Allergy Other Verified 12/17/23 09:01 [bees] Home Medications Medication Instructions Recorded Confirmed Type bupropion HCl 300 mg 24 hr tablet, 300 mg PO DAILY 12/16/23 12/17/23 History extended release Laboratory Tests 12/16/23 12/16/23 12/17/23 14:38 16:54 00:03 WBC 6.9 K/mm3 (4.5-10.0) RBC 3.91 L M/mm3 (4.2-5.4) Hgb 11.8 L g/dL (12.0-15.0) Hct 36.7 L % (37.0-47.0) MCV 93.9 fl (80-100) MCH 30.2 pg (26-34) MCHC 32.2 g/dl (32-36) RDW 12.5 % (11.5-14.5) Plt Count 274 k/mm3 (150-375) MPV 9.3 fl (7.4-10.4) Immature Gran % (Auto) 0.1 % (0-0.5) Neut % (Auto) 48.0 % (45.5-73.1) Lymph % (Auto) 36.4 % (18.3-44.2) [place] % (Auto) 7.1 % (2.6-8.5) Eos % (Auto) 7.7 H % (0-4.4) Baso % (Auto) 0.7 % (0.2-1.2) Lymph # (Auto) 2.51 K/mm3 (0.9-3.2) [place] # (Auto) 0.5 K/mm3 (0.1-0.6) Eos # (Auto) 0.5 H K/mm3 (0-0.3) Baso # (Auto) 0.1 K/mm3 (0.0-0.1) Abs Immat Gran (auto) 0.01 K/mm3 (0.00-0.031) Absolute Neuts (auto) 3.3 K/mm3 (1.3-6.7) Absolute Nucleated RBC 0.000 K/mm3 (0.0-0.012) Nucleated RBC % 0.0 % (0.0-0.2) Sodium 136 L mmol/L (137-145) Potassium 3.6 mmol/L (3.4-5.0) Chloride 105 mmol/L (98-107) Carbon Dioxide 28 mmol/L (22-30) Anion Gap 3 L mmol/L (4-12) BUN 9 D mg/dL (7-17) Creatinine 0.60 L mg/dL (0.7-1.0) Estim Creat Clear Calc 144 ml/min Estimated GFR > 60 (59 - ) Glucose 95 mg/dL (65-110) POC Capillary Glucose 88 mg/dl 95 mg/dl (65-105) (65-105) Hemoglobin A1c 5.2 % (<5.7) Calcium 8.4 mg/dL (8.4-10.2) Total Bilirubin 1.3 mg/dL (0.2-1.3) AST 28 U/L (14-36) ALT 24 U/L (6-35) Alkaline Phosphatase 41 U/L (38-126) Total Protein 7.0 g/dL (6.3-8.2) Albumin 3.7 g/dL (3.5-5.1) Lipase 79 U/L (23-300) TSH (Reflex) 1.200 uIU/mL (0.465-4.68) 12/17/23 12/17/23 05:42 11:24 WBC 6.8 K/mm3 (4.5-10.0) RBC 4.16 L M/mm3 (4.2-5.4) Hgb 12.6 g/dL (12.0-15.0) Hct 38.7 % (37.0-47.0) MCV 93.0 fl (80-100) MCH 30.3 pg (26-34) MCHC 32.6 g/dl (32-36) RDW 12.2 % (11.5-14.5) Plt Count 298 k/mm3 (150-375) MPV 9.3 fl (7.4-10.4) Immature Gran % (Auto) 0.1 % (0-0.5) Neut % (Auto) 59.7 % (45.5-73.1) Lymph % (Auto) 27.6 % (18.3-44.2) [place] % (Auto) 6.0 % (2.6-8.5) Eos % (Auto) 6.0 H % (0-4.4) Baso % (Auto) 0.6 % (0.2-1.2) Lymph # (Auto) 1.88 K/mm3 (0.9-3.2) [place] # (Auto) 0.4 K/mm3 (0.1-0.6) Eos # (Auto) 0.4 H K/mm3 (0-0.3) Baso # (Auto) 0.0 K/mm3 (0.0-0.1) Abs Immat Gran (auto) 0.01 K/mm3 (0.00-0.031) Absolute Neuts (auto) 4.1 K/mm3 (1.3-6.7) Absolute Nucl
--- NOTE | 2023-12-17 14:36 | WPDHPUPDATE1 ---
History and Physical Update Update Date/Time: 12/17/23 14:36 History and Physical has been reviewed, including an updated exam of the patient. There are NO changes in the patient's condition. Risks, benefits, and alternatives have been discussed and questions answered. Patient agrees to proceed with procedure.
[2023-12-17] MEDS: ceFAZolin 3 GM/D5W 100 ML 100 ML IVPB (14:51)
[2023-12-17] MEDS: BUPIVACAINE/EPINEPHRINE 0.5% 50 ML VIAL 30 ML INFILTRATE (15:19)
[2023-12-17] MEDS: LACTATED RINGERS 1,000 ML 30 ML IV CONT (15:56)
--- NOTE | 2023-12-17 16:10 | W.PM.PROC2 ---
Procedure Note - Detailed Date of Procedure 12/17/23 Pre-op Diagnosis Acute Cholecystitis Post-op Diagnosis Same Procedure Performed Laparoscopic Cholecystectomy Surgeon Cain Regalado, DO Anesthesia General and Local (0.5% bupivacaine) Indications A 38-year-old woman who presented to the emergency department with right upper quadrant pain for the past 2 days. She has had some symptoms like this in the past but this has been more persistent. In the emergency department a CT showed evidence of gallbladder wall thickening. She was admitted for further workup and treatment. A gallbladder ultrasound showed evidence of cholelithiasis and cholecystitis. Discussions were made with the patient about treatment options and decision was made to proceed with laparoscopic cholecystectomy, possible open. Findings Laparoscopic cholecystectomy was performed. The gallbladder appeared slightly dilated and contained multiple stones. There was even 1 stone identified in the cystic duct. The cystic duct did appear to be tapering down to normal size just beyond the stone. There were a few pericholecystic adhesions as well. No other intra-abdominal abnormalities were identified. The gallbladder was removed and sent to the lab for pathology. Description of Procedure Procedure as well as risks, benefits, and alternatives were discussed with patient. Written consent was obtained and placed in chart prior to procedure. The patient was brought back to surgical suite. Patient was placed in supine position on operating table. Time-out was done to confirm patient and procedure. Patient was then intubated by the anesthesia department. Abdomen was prepped and draped in sterile fashion using chlorhexidine prep. 0.5% bupivacaine with epinephrine was infiltrated at each site of incision. A 5 millimeter incision was made near the umbilicus, and a 5 millimeter Optiview trocar was advanced through the abdominal layers under direct visualization. Once inside the abdominal cavity, carbon dioxide was insufflated to create a pneumoperitoneum. The camera was inserted and the abdomen was inspected. No immediate abnormalities were identified. The patient was placed in reverse Trendelenburg position and rotated slightly to the left. An 11 millimeter incision was made in the subxiphoid region, and an 11 millimeter trocar was inserted under direct visualization. Two 5 millimeter incisions were made in the right upper quadrant, and two 5 millimeter trocars were inserted under direct visualization. The gallbladder was identified and grasped at the fundus and retracted superiorly. It was then grasped at the infundibulum retracted laterally. Careful dissection around the neck of the gallbladder was performed using blunt dissection with a [place] grasper and hook electrocautery. The cystic duct was identified, and a window was created behind it. The cystic artery was also identified and a window was created behind it. The critical view of safety was identified, visualizing the cystic duct running directly into the neck of the gallbladder, and the cystic artery running directly into the wall of the gallbladder. A 5 millimeter clip communication specialist was then used to place 2 clips proximally and 1 clip distally on both the cystic duct and cystic artery. They were then both transected using endoscopic scissors. Once safely away from the mahin hepatitis, the gallbladder was dissected free from the liver bed using hook electrocautery. Hemostasis was achieved along the way. The gallbladder was removed completely and then removed through the subxiphoid port. The liver bed was then inspected. Hemostasis appeared adequate, and our clips appeared secure. The area was gently irrigated with sterile saline. No other abnormalities were seen. The patient was flattened out in bed, and 1 final inspection was made around the abdominal cavity. The subxiphoid port was removed, and a Sergei Marielena cone was used to
[2023-12-17 16:12] LABS: Glucose Point of Care 143 mg/dl (65-105)
[2023-12-17] MEDS: fentaNYL CITRATE INJ (*CRX) 100 MCG/2 ML VIAL 25 MCG IV PUSH ×3 (16:32→16:45)
[2023-12-17] MEDS: KETOROLAC 15 MG/ML VIAL (*BKC) IV PUSH (16:32)
[2023-12-17] MEDS: HYDROcodone/acetaminophen (*CRX) 10-325 MG TABLET 1 TAB PO (17:34)
[2023-12-17] MEDS: buPROPion HCL XL (24 HR) 150 MG TABCR 300 MG PO (17:35)
[2023-12-17] MEDS: LACTATED RINGERS 1,000 ML 100 ML IV CONT (17:35)
--- NOTE | 2023-12-17 18:17 | PM.DS ---
DS: Admitting Diagnosis Discharge Date 12/17/2023 Admitting Diagnosis abdominal pains DS: Discharge Diagnosis Discharge Diagnosis (1) Acute cholecystitis: Code(s): K81.0 - Acute cholecystitis Status: Acute Assessment and Plan: Patient with acute onset abdominal pain 2-3 hours after eating. LFTs and lipase normal. Pain resolved in ED with use of narcotics or orther analgesics. CT scan showing mild GB wall thickening but o/w no acute findings. No significant pain at this time. pt proceeding to lap terra today ultrasound shows - ?Cholelithiasis. Gallbladder wall thickening may be seen with interstitial edema, chronic liver disease, or chronic cholecystitis. (2) Nausea & vomiting: Code(s): R11.2 - Nausea with vomiting, unspecified Status: Acute Assessment and Plan: Related to abdominal pain. Possibly realted to acute cholecystitis but consider gastroenteritis or PUD. Symptoms better. Add PPI (3) Hypothyroidism: Code(s): E03.9 - Hypothyroidism, unspecified Status: Acute Assessment and Plan: She states she was on thyroid medication for weight loss and does not have hypothyroidism TSH is nl (4) Diabetes: Code(s): E11.9 - Type 2 diabetes mellitus without complications Status: Acute Assessment and Plan: She states she was on metformin for weight loss and does not have DM. hbaic is 5 Pt does not have DM (5) HTN (hypertension): Code(s): I10 - Essential (primary) hypertension Status: Acute Assessment and Plan: She also denies having HTN although listed on her PMH as well. Follow BP and treat approrpriately. (6) Chronic GERD: Code(s): K21.9 - Gastro-esophageal reflux disease without esophagitis Status: Acute Assessment and Plan: has a hx of GERD but not on gastric suppression. As above (7) Obesities, morbid: Code(s): E66.01 - Morbid (severe) obesity due to excess calories Status: Acute Assessment and Plan: BMI 53. Healthy lifestyle choices encouraged. Dietary consult (8) Depression: Code(s): F32.A - Depression, unspecified Status: Acute Assessment and Plan: Mood stable. Continue bupropion DS: Summary Hospital Course Hospital Course: Pt admitted for cholecystitis pt proceeding to have lap terra today ok to dc after surgery as per Surgery MD. Time Spent with Patient Time attestation: Total time spent providing and/or coordinating discharge services:50 minutes on day of dc Exam Narrative: Gen - overweight younger female some distress y. Neck - neck was supple and thick. No obvious dominant adenopathy, thyromegaly or masses. Chest - lungs are clear to auscultation bilaterally. No wheezes or crackles. Breast exam was deferred. CV - heart was regular rate and rhythm. S1-S2. No murmurs gallops or rubs. Abd - abdomen was soft. Nontender. Nondistended. Positive bowel sounds. No organomegaly or masses.sp lap terra Ext - no clubbing, cyanosis or edema. 2+ DP pulses bilaterally. Neuro - patient is alert and oriented x4. Strength is 5/5 in both upper and lower extremities. Cranial nerves 2-12 are intact. Speech is clear. Psych - normal mood and affect. Patient is pleasant and cooperative. Skin - warm and dry. No rashes noted. DS: Data Data Completed and Pending Pending studies at discharge: Pending at discharge 12/17/23 09:41 Surgical [PTH] Routine 12/17/23 15:37 Surgical [PTH] Routine Labs on day of discharge: Labs from last 24 hours 12/17/23 12/17/23 12/17/23 16:02 11:24 05:42 WBC 6.8 RBC 4.16 L Hgb 12.6 Hct 38.7 MCV 93.0 MCH 30.3 MCHC 32.6 RDW 12.2 Plt Count 298 MPV 9.3 Immature Gran % (Auto) 0.1 Neut % (Auto) 59.7 Lymph % (Auto) 27.6 Webb % (Auto) 6.0 Eos % (Auto) 6.0 H Baso % (Auto) 0.6 Lymph # (Auto) 1.88 Webb # (Auto)
[2023-12-17] MEDS: HYDROcodone/acetaminophen (*CRX) 5-325 MG TABLET 1 TAB PO (21:53)
== END 2023-12-17 23:00 | disposition home or self-care (01) | DRG 263 ==
LOC: ANHED 12-16 06:05 → ANH3MED 12-16 06:46
PROVIDERS: Internal Medicine; Internal Medicine Gastroenterology; Nurse Practitioner Family; Surgery; Admitting Provider Internal Medicine; Emergency Provider Emergency Medicine; PCP Physician Assistant; Visit Provider Family Medicine
PROC: 0FT44ZZ Resection of Gallbladder, Percutaneous Endoscopic Approach (ICD-10-PCS; CPT 47562; principal; 2023-12-17 14:30)
PROC: 0DJ08ZZ Inspection of Upper Intestinal Tract, Via Natural or Artificial Opening Endoscopic (ICD-10-PCS; CPT 43235; principal; 2023-12-17 15:30)
DX: K80.10 Calculus of gallbladder with chronic cholecystitis without obstruction (principal); Z68.43 Body mass index [BMI] 50.0-59.9, adult; E66.01 Morbid (severe) obesity due to excess calories; K21.00 Gastro-esophageal reflux disease with esophagitis, without bleeding; K29.70 Gastritis, unspecified, without bleeding; E03.9 Hypothyroidism, unspecified; K21.9 Gastro-esophageal reflux disease without esophagitis; F32.A Depression, unspecified; K92.0 Hematemesis; I10 Essential (primary) hypertension
CPT/HCPCS: 36415; 74177; 76705; 80053; 81001; 81025; 82948; 83036; 83690; 84443; 85025; 87086; 87088; 87637; 88304; 88305; 96361; 96374; 99285; A9270; C9113; J0690; J0696; J1100; J1885; J2250; J2405; J2704; J3010; J7030; J7120; Q9967

== ENCOUNTER 2025-06-27 08:52 | Outpatient (CLI) | payer OTHER, SELFPAY ==
--- NOTE | ~2025-06-27 | MM_ITS ---
EXAMINATION: MM screening ki BI w ben HISTORY: Screening TECHNIQUE: Craniocaudal and mediolateral oblique 3-D tomosynthesis images were obtained and synthetic 2-D images were generated. CAD analysis was submitted and interpreted. COMPARISON: No prior mammogram is available for comparison at this institution. BREAST PARENCHYMAL COMPOSITION: There are scattered areas of fibroglandular density. FINDINGS: There is no evidence of suspicious mass, calcification, or architectural distortion to suggest malignancy. Asymmetry in the medial left breast, middle depth, seen in the left CC projection. IMPRESSION: 1. Asymmetry in the medial left breast, middle depth, seen in the left CC projection. The study is incomplete. A diagnostic mammogram and a diagnostic breast ultrasound are recommended. 2. No evidence of malignancy in the right breast. BI-RADS 0: Incomplete-Need additional imaging evaluation. Reviewed, dictated and finalized at location Q. IMPRESSION: 1. Asymmetry in the medial left breast, middle depth, seen in the left CC proje ction. The study is incomplete. A diagnostic mammogram and a diagnostic breast ultrasound are recommended. 2. No evidence of malignancy in the right breast. BI-RADS 0: Incomplete-Need additional imaging evaluation.
--- OUTSIDE RECORDS SUMMARY | 2025-06-27 09:13 | XMS_ITS | Clinical Summary ---
Author Organization [facility] Address [address] [place] [address] Care Team Providers Care Supervisor Electronics Assembly Name Role Phone [facility] ([facility]) Primary Care Provi lonnie Source Comments [facility],non-owned Affiliates and Associated Physician Practices is amultiple site organization consisting of ambulatory clinics and hospital sitesin [place], [place], [place] and [place]. This disclosure is being madepursuant to the Care Everywhere program and may not contain all information available regarding this patient. Last updated 18.[facility] Allergies No known active allergies Medications * Be aware that medications may not be up to date on this document. Alwaysverify current medications with the patient. valACYclovir (VALTREX) 1 GM tabletIndicatio ns:Herpes Simplex Infection Take 1,000 mg by mouth every 12 hours. Indications: Herpes Simplex Infection Active Vit-Fe Fumarate-FA ( RX 1) 60-1 MG tabletIndicatio ns: Take 1 Tab by mouth once daily. Indications: Active lanolin (LANOLIN) ointment Apply to affected area as needed for Dry Skin (Sore or cracked nipples.). 56 g 0 2 Active ibuprofen (MOTRIN) 600 MG tablet Take 1 Tab by mouth every 6 hours as needed for Pain. 60 Tab 1 2 Active docusate sodium (COLACE) 100 MG capsule Take 1 Cap by mouth 2 times daily as needed for Constipation. 60 Cap 1 2 Active progesterone micronized (PROMETRIUM) 100 MG capsule Take 200 mg by mouth twice daily before meal and at bedtime. Active metoclopramide (REGLAN) 10 MG tablet Take 1 Tab by mouth every 6 hours as needed for Nausea/Vomitin g. 30 Tab 3 3 Active famotidine (PEPCID) 20 MG tablet Take 1 Tab by mouth 2 times daily. 60 Tab 3 3 Active aspirin 81 MG tablet Take 1 Tab by mouth once daily. 90 Tab 3 3 Active Active Problems Problem Noted Date Diagnosed Date Supervision of other high-risk 013 Overview (07/23/2015): PNL: A+/I/-/- Ab: neg GCT: 128 HIV: NR GBS: Datin week doc US (Dr Beatty) H/H/Plt: 11.9/37/350 Hgb Elec: UDS: QS: CF: Pap: Gc/Chl: UCx: Breast/Bottle Family Planning: please discuss BTL with patient due to severity of previous and moderate proteinuria early in this H/O HELLP syndrome, currently 3 Overview (12/29/2012): In G4: Severe proteinuria: 21,600 mg Liver enzymes severely elevated to AST 1665 and ALT 793 Platelets kaelyn at 71 Needed multiple doses of IV labetalol during labor H/O pre-eclampsia in prior , currently 12/29/2012 Overview (12/29/2012): Severe due to proteinuria, HELLP in G4 Baseline 24 hour urine 2,096mg on 11/27/12 PIH labs on 11/27/12: Uric acid 4.2 AST/ALT: 18/14 Plt 350 Not currently on BP medications H/O delivery, currently 013 Overview (12/29/2012): Induced for HELLP, severe PreE H/O hemorrhage, currently Overview (12/29/2012): In G4, required Hemabate once and 1000mg Cytotec Short interval between pregn ancies complicating , antepartum 12/29/2012 Overview (12/29/2012): Delivered 07/02/12 h/o LEEP 07/01/2012 Overview (03/10/2013): CL 4.3cm on 03/10 HSV (herpes simplex virus) infection Abnormal Pap smear of cervix Depression Obesity Overview (12/30/2012): HgA1c= 5.6 10/31/12 Resolved Problems Problem Noted Date Diagnosed Date Resolved Date Supervision of high-risk 07/01/2012 12/29/2012 Overview (07/01/2012): Datinwk doc u/s Labs: A+/I/-/- Antibody: Negative HIV: Neg Hgb/Hct/Plt: HgbE: GC/CT: Neg/Neg Pap: Negative Genetics: Anatomy: GCT: GBS: Breast/bottle: Contraception: Severe pre-eclampsia 07/01/2012 013 Overview (07/01/2012): By blood pressure criteria and 21,600 mg of protein in urine (done at OSH) Remote hx of Chlamydia 12/30 Trichomoniasis 12/30/2012 Overview (02/06/2015): Immunizations Immunization Administration Dates Next Due TDAP (7yrs+) 07/04/2012 Family History Medical History Relation Name Comments Arthritis Father Hypertension Mother Relation Name Status Comments Father Mother Social History Tobacco Use Types Packs/Day Years Used Date Smoking Tobacco: Never Tobacco Cessation:Counseling Given: Yes Alcohol Use Standard Drinks/Week Comments No 0 (1 standard drink = 0.6 oz pur e alcohol) Comments No Sex and Gender Information Value Date Recorded Sex Assigned at Not on file 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 Gender Identity Not on file Sexual Orientation Not on file Last Filed Vital Signs Vital Sign Reading Time Taken Comments Blood Pressure 111/76 04/07/2013 1:00 PM CDT Pulse 98 12/30/2012 1:45 PM CDT Temperature 36.8 C (98.2 F) 07/05/2012 7:10 AM CDT Respiratory Rate 18 12/30/2012 1:45 PM CDT Oxygen Saturation 99% 07/05/2012 7:10 AM CDT Inhaled Oxygen Concentration - - Weight 128.4 kg (283 lb) 04/07/2013 1:00 PM CDT Height 160 cm (5' 3) 03/10/2013 12:30 PM CDT Body Mass Index 50.13 03/10/2013 12:30 PM CDT Plan of Treatment Health Maintenance Due Date Last Done Comments LIPID TESTING 1983 MAMMOGRAM 1983 HIV SCREENING 1998 HEPATITIS C SCREENING 10/05/2001 HEPATITIS B VACCINE (1 of 3 - 19+ 3-dose series) 2002 PAP SMEAR 2004 HPV VACCINE (1 - 3-dose SCDM series) 2010 DTAP/TDAP/TD VACCINES (2 - T d or Tdap) 07/04/2022 07/04/2012 DEPRESSION SCREENING 09/15/2024 COVID-19 VACCINE (1 - 2023-2 5 season) 2025 INFLUENZA VACCINE (#1) 2025 ZOSTER VACCINE (1 of 2) 2033 HIB VACCINE Aged Out No longer eligi ble based on patient's age to complete this topic MENINGOCOCCAL (Group B) VACC INE SHARED DECISION-MAKING Aged Out No longer eligibl e based on patient's age to complete this topic MENINGOCOCCAL GROUPS A/C/Y/W VACCINE Aged Out No longer eligible b ased on patient's age to complete this topic PNEUMOCOCCAL VACCINE Aged Out No long er eligible based on patient's age to complete this [place] [address] [place] - [place] [facility] SELF PAY NO INSURANCE Member Subscriber Plan / Payer (Ef fective for All Dates) Name:Oxana Venegas S Member ID:Not on file Relation to Subscriber:Not on file Name:OXANA VENEGAS Subscriber ID:Not on file Address: [address] [place] [address] Payer ID:Not on file Group ID:Not on file Type:Self Pay Address: [place], [place] [facility] SELF PAY NO INSURANCE Member Subscriber Plan / Payer (Ef fective for All Dates) Name:Oxana Venegas Member ID:Not on file Relation to Subscriber:Not on file Name:OXANA VENEGAS Subscriber ID:Not on file Address: [address] [place] [address] Payer ID:Not on file Group ID:Not on file Type:Self Pay Address: [place], [place] [facility] SELF PAY NO INSURANCE Member Subscriber Plan / Payer (Ef fective for All Dates) Name:Oxana Venegas S Member ID:Not on file Relation to Subscriber:Not on file Name:OXANA VENEGAS Subscriber ID:Not on file Address: [address] [place] [phone] Payer ID:Not on file Group ID:Not on file Type:Self Pay Address: [place], [place] [facility] SELF PAY NO INSURANCE Member Subscriber Plan / Payer (Ef fective for All Dates) Name:Oxana Venegas Member ID:Not on file Relation to Subscriber:Not on file Name:OXANA VENEGAS Subscriber ID:Not on file Address: [facility] [place] [phone] Payer ID:Not on file Group ID:Not on file Type:Self Pay Address: [place], [place] Advance Directives * FULL RESUSCITATION (Latest Code Status on File) Date Activated Date Inactivated Comments 07/02/2012 11:06 AM 07/05/2012 2:34 PM * FULL RESUSCITATION Date Activated Date Inactivated Comments 07/01/2012 7:49 PM 07/02/2012 11:06 AM Care Teams Supervisor Electronics Assembly Relationship Specialty Start Date End Date [facility] ([facility] [address] [place] [address] PCP - General 04/09/22
== END 2025-06-27 08:53 | disposition home or self-care (01) ==
LOC: ANHFOHIMG 08:54
PROVIDERS: PCP Physician Assistant; Visit Provider Physician Assistant
DX: Z12.31 Encounter for screening mammogram for malignant neoplasm of breast (principal); R92.8 Other abnormal and inconclusive findings on diagnostic imaging of breast
CPT/HCPCS: 77063; 77067

== ENCOUNTER 2025-08-08 13:07 | Outpatient (CLI) | payer OTHER, SELFPAY ==
--- NOTE | ~2025-08-08 | MMUS_ITS ---
EXAMINATION: MM diagnostic ki LT w ben, US breast LT limited HISTORY: Follow-up left breast asymmetry. TECHNIQUE: Additional 3-D tomosynthesis images of the left breast were performed and synthetic 2-D images were generated. CAD analysis was submitted and interpreted. High resolution Limited left breast ultrasound was performed. COMPARISON: 06/27/2025 BREAST PARENCHYMAL COMPOSITION: Not dense: There are scattered areas of fibroglandular density. FINDINGS: MAMMOGRAPHIC FINDINGS: There is a lobulated mass in the lower inner quadrant of the left breast, middle third. There are no suspicious calcifications or architectural distortion. ULTRASOUND: Limited left breast ultrasound: At 8:00, 5 cm from the nipple there are 2 adjacent cysts measuring up to 1 cm in aggregate. At 10:00, 4 cm from the nipple there is a 4 mm cyst. No suspicious sonographic abnormalities are identified to suggest malignancy. IMPRESSION: 1. No evidence for malignancy in the left breast. Benign findings. 2. Routine yearly screening mammogram and regular clinical breast examination are recommended. BI-RADS Category 2: Benign finding(s). Reviewed, dictated and finalized at location O. PHONE INSTRUMENT SUPERVISOR IMPRESSION: 1. No evidence for malignancy in the left breast. Benign findings. 2. Routine yearly screening mammogram and regular clinical breast examination a re recommended. BI-RADS Category 2: Benign finding(s).
--- OUTSIDE RECORDS SUMMARY | 2025-08-08 15:17 | XMS_ITS | Clinical Summary ---
Author Organization [facility] Address [address] [place] [address] Care Team Providers Care Blade Aligner Name Role Phone [facility] ([facility]) Primary Care Provi lonnie Source Comments [facility],non-owned Affiliates and Associated Physician Practices is amultiple site organization consisting of ambulatory clinics and hospital sitesin [place], [place], [place] and [place]. This disclosure is being madepursuant to the Care Everywhere program and may not contain all information available regarding this patient. 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 Gender Identity Not on file Sexual Orientation [...] of 3 - 19+ 3-dose series) 2002 Cervical Cancer Screening 2004 PAP SMEAR 2004 HPV VACCINE (1 - 3-dose SCDM series) 2010 PAP with HPV 2013 DTAP/TDAP/TD VACCINES (2 - T d or Tdap) 07/04/2022 07/04/2012 DEPRESSION SCREENING 09/15/2024 COVID-19 VACCINE (1 - 2024-2 6 season) 2025 INFLUENZA VACCINE (#1) 2025 ZOSTER [...] age to complete [place] [address] MEDICAID - [place] [facility] SELF PAY NO INSURANCE Member Subscriber Plan / Payer (Ef fective for All Dates) Name:Oxana Venegas S Member ID:Not on file Relation to Subscriber:Not on file Name:OXANA VENEGAS Subscriber ID:Not on file Address: [address] [place] [address] Payer ID:Not on file Group ID:Not on file Type:Self Pay Address: [place], [place] [facility] SELF PAY NO INSURANCE Member Subscriber Plan / Payer (Ef fective for All Dates) Name:Oxana Venegas S Member ID:Not on file Relation to Subscriber:Not on file Name:OXANA VENEGAS Subscriber ID:Not on file Address: [facility] Payer ID:Not on file Group ID:Not on file Type:Self Pay Address: [place], [place] [facility] SELF PAY NO INSURANCE Member Subscriber Plan / Payer (Ef fective for All Dates) Name:Oxana Venegas Member ID:Not on file Relation to Subscriber:Not on file Name:OXANA VENEGAS Subscriber ID:Not on file Address: [facility] [place] [phone] Payer ID:Not on file Group ID:Not on file Type:Self Pay Address: [place], [place] [facility] SELF PAY NO INSURANCE Member Subscriber Plan / Payer (Ef fective for All Dates) Name:Oxana Venegas Member ID:Not on file Relation to Subscriber:Not on file Name:OXANA VENEGAS Subscriber ID:Not on file Address: [facility] [place] [phone] Payer ID:Not on file Group ID:Not on file Type:Self Pay Address: [place], [place] Advance Directives * FULL RESUSCITATION (Latest Code Status on File) Date Activated Date Inactivated Comments 07/02/2012 11:06 AM 07/05/2012 2:34 PM * FULL RESUSCITATION Date Activated Date Inactivated Comments 07/01/2012 7:49 PM 07/02/2012 11:06 AM Care Teams Blade Aligner Relationship Specialty Start Date End Date [facility] ([facility]) [address] [place] [address] PCP - General 04/09/22
== END 2025-08-08 13:08 | disposition home or self-care (01) ==
LOC: ANHFOHIMG 13:10
PROVIDERS: PCP Physician Assistant; Visit Provider Physician Assistant
DX: R92.8 Other abnormal and inconclusive findings on diagnostic imaging of breast (principal)
CPT/HCPCS: 76642; 77061; 77065; G0279